=== PATIENT | male | born 1995 | race Hispanic/Latino ===

== ENCOUNTER 2017-04-03 00:54 | Emergency (ER) | payer BC ==
[~2017-04-03] VITALS: Ht 170.2 cm; Wt 79.4 kg
[2017-04-03] MEDS ORDERED: AUGMENTIN875 MG PO (02:03)
[2017-04-03 02:29] VITALS: BP 128/76
== END 2017-04-03 02:29 | disposition home or self-care (01) ==
LOC: EME 00:54
DX: I88.9 Nonspecific lymphadenitis, unspecified (principal)
CPT/HCPCS: 99281; 99283